=== PATIENT | male | born 1940 | race Caucasian/White ===

== ENCOUNTER → 2016-09-22 | Outpatient (CLI) | payer MEDICARE, OTHER ==
[~2016-09-22] MED LIST: AMBIEN CR12.5 MG PO; ATROVENT NASAL15 ML NS; CIALIS20 MG PO; DEPO-TESTOS200 MG/ML IM; LUTEIN20 M2 PO; METAMUCIL1 PDR PO; OMEPRAZOLE20 MG PO; ST. JOSEPH81 M2 PO; TERAZOSIN HCL5 MG PO; VIAGRA100 MG PO
== END ==
LOC: LAB 11:53
DX: I10 Essential (primary) hypertension (principal); Z72.51 High risk heterosexual behavior; N40.0 Benign prostatic hyperplasia without lower urinary tract symptoms; Z00.00 Encounter for general adult medical examination without abnormal findings; G56.21 Lesion of ulnar nerve, right upper limb; E29.1 Testicular hypofunction; R53.83 Other fatigue

== ENCOUNTER → 2017-03-05 | Outpatient (CLI) | payer MEDICARE, OTHER ==
[2015-10-13 10:44] VITALS: BP 138/74
== END ==
LOC: LAB 11:37
DX: E29.1 Testicular hypofunction (principal)

== ENCOUNTER → 2017-08-17 | Outpatient (CLI) | payer MEDICARE, OTHER ==
[2015-10-13 10:44] VITALS: BP 138/74
[2017-08-17 15:45] LABS: EOS # 0.2 (0.04-0.40); EOS % 2.4 % (0.0-4.0); HEMATOCRIT 48.9 % (42.0-52.0); HEMOGLOBIN 16.4 g/dL (13.5-18.0); LYMPH# 1.6 (1.50-4.00); MEAN CELL VOLUME 89 fl (78-100); MEAN CORPUSCULAR HEMOGLOBIN 30 pg (27-31); MEAN CORPUSCULAR HGB CONC 34 g/dL (33-37); MEAN PLATELET VOLUME 11.1 fl (7.4-10.4); MONO # 0.5 (0.20-0.80); NEU # 3.9 (1.40-6.50); PLATELET COUNT 190 K/mm3 (130-400); RED BLOOD COUNT 5.48 M/mm3 (4.20-5.60); RED CELL DISTRIBUTION WIDTH 13.9 % (11.5-14.5); WHITE BLOOD COUNT 6.2 K/mm3 (4.8-10.8)
[2017-08-17 16:08] LABS: ALBUMIN 4.3 g/dL (3.5-5.0); BUN/CREATININE RATIO 24.7 (6.0-26.0); CALCIUM 9.5 mg/dL (8.4-10.2); TOTAL BILIRUBIN 0.6 mg/dL (0.2-1.3); TOTAL PROTEIN 7.6 g/dL (6.3-8.2)
[2017-08-18 00:56] LABS: TESTOSTERONE 461 ng/dL (221-716)
[2017-08-18 01:06] LABS: HEPATITIS C ANTIBODY Negative (())
[2017-08-18 01:40] LABS: RPR (VDRL) Non-reactive (())
== END ==
LOC: LAB 14:31
PROVIDERS: Family Medicine
DX: E66.3 Overweight (principal); N40.0 Benign prostatic hyperplasia without lower urinary tract symptoms; Z12.5 Encounter for screening for malignant neoplasm of prostate; Z72.51 High risk heterosexual behavior

== ENCOUNTER → 2017-10-31 | Outpatient (CLI) | payer MEDICARE, OTHER ==
[2015-10-13 10:44] VITALS: BP 138/74
== END ==
LOC: RAD 12:57
DX: M19.012 Primary osteoarthritis, left shoulder (principal); M19.011 Primary osteoarthritis, right shoulder; M24.012 Loose body in left shoulder; E29.1 Testicular hypofunction

== ENCOUNTER → 2018-02-27 | Outpatient (CLI) | payer MEDICARE, OTHER ==
[2015-10-13 10:44] VITALS: BP 138/74
== END ==
LOC: RAD 13:42
DX: K40.20 Bilateral inguinal hernia, without obstruction or gangrene, not specified as recurrent (principal); M79.9 Soft tissue disorder, unspecified; Z87.81 Personal history of (healed) traumatic fracture

== ENCOUNTER → 2018-05-31 | Outpatient (CLI) | payer MEDICARE, OTHER ==
[2015-10-13 10:44] VITALS: BP 138/74
== END ==
LOC: LAB 11:17
DX: E29.1 Testicular hypofunction (principal)

== ENCOUNTER → 2018-06-06 | Outpatient (CLI) | payer MEDICARE, OTHER ==
[~2018-06-06] VITALS: Ht 177.8 cm; Wt 86.4 kg
[~2018-06-06] MED LIST changes: +HCTZ 25MG25 MG PO; +NEURONTIN300 MG/CAP
[2018-06-06 14:25] LABS: URINE APPEARANCE CLEAR; URINE BILIRUBIN NEGATIVE (NEGATIVE); URINE BLOOD NEGATIVE (NEGATIVE); URINE COLOR YELLOW; URINE GLUCOSE NEGATIVE (NEGATIVE); URINE KETONE NEGATIVE (NEGATIVE); URINE LEUKOCYTE ESTERASE NEGATIVE (NEGATIVE); URINE MUCUS PRESENT (NOT PRESENT); URINE NITRATE NEGATIVE (NEGATIVE); URINE PROTEIN(semi-quant) NEGATIVE (NEGATIVE); URINE UROBILINOGEN NORMAL (NORMAL); URINE WBC 0-1 /hpf (0-3)
[2018-06-06 14:26] LABS: EOS # 0.2 (0.04-0.40); EOS % 2.3 % (0.0-4.0); HEMATOCRIT 47.1 % (42.0-52.0); HEMOGLOBIN 16.3 g/dL (13.5-18.0); LYMPH# 1.7 (1.50-4.00); MEAN CELL VOLUME 89 fl (78-100); MEAN CORPUSCULAR HEMOGLOBIN 31 pg (27-31); MEAN CORPUSCULAR HGB CONC 35 g/dL (33-37); MEAN PLATELET VOLUME 10.7 fl (7.4-10.4); MONO # 0.5 (0.20-0.80); NEU # 4.7 (1.40-6.50); PLATELET COUNT 185 K/mm3 (130-400); RED BLOOD COUNT 5.29 M/mm3 (4.20-5.60); RED CELL DISTRIBUTION WIDTH 13.3 % (11.5-14.5); WHITE BLOOD COUNT 7.1 K/mm3 (4.8-10.8)
[2018-06-06 14:27] LABS: ALBUMIN 4.3 g/dL (3.5-5.0); CALCIUM 9.5 mg/dL (8.4-10.2); POTASSIUM 3.6 mmol/L (3.6-5.0); TOTAL BILIRUBIN 1.1 mg/dL (0.2-1.3); TOTAL PROTEIN 6.9 g/dL (6.3-8.2)
[2018-06-06 17:15] VITALS: BP 151/85
== END ==
LOC: RAD 12:00 → AMSURD 13:50
PROVIDERS: Family Medicine
DX: Z01.818 Encounter for other preprocedural examination (principal); R13.10 Dysphagia, unspecified

== ENCOUNTER → 2018-06-18 | Outpatient (CLI) | payer MEDICARE, OTHER ==
[2018-06-06 17:15] VITALS: BP 151/85
== END ==
LOC: RAD 15:09
DX: J84.10 Pulmonary fibrosis, unspecified (principal); R13.10 Dysphagia, unspecified; Z87.81 Personal history of (healed) traumatic fracture

== ENCOUNTER → 2018-07-22 | Outpatient (CLI) | payer MEDICARE, OTHER ==
[2018-06-06 17:15] VITALS: BP 151/85
[2018-07-22 10:12] LABS: EOS # 0.4 (0.04-0.40); HEMATOCRIT 46.6 % (42.0-52.0); HEMOGLOBIN 15.7 g/dL (13.5-18.0); LYMPH# 1.2 (1.50-4.00); MEAN CELL VOLUME 90 fl (78-100); MEAN CORPUSCULAR HEMOGLOBIN 30 pg (27-31); MEAN CORPUSCULAR HGB CONC 34 g/dL (33-37); MEAN PLATELET VOLUME 10.4 fl (7.4-10.4); MONO # 0.4 (0.20-0.80); NEU # 3.5 (1.40-6.50); PLATELET COUNT 177 K/mm3 (130-400); RED BLOOD COUNT 5.17 M/mm3 (4.20-5.60); RED CELL DISTRIBUTION WIDTH 12.9 % (11.5-14.5); WHITE BLOOD COUNT 5.5 K/mm3 (4.8-10.8)
[2018-07-22 10:20] LABS: EOS % 7.6 % (0.0-4.0)
[2018-07-22 10:23] LABS: ALBUMIN 4.2 g/dL (3.5-5.0); CALCIUM 9.4 mg/dL (8.4-10.2); POTASSIUM 3.8 mmol/L (3.6-5.0); TOTAL PROTEIN 6.9 g/dL (6.3-8.2)
[2018-07-22 11:01] LABS: URINE APPEARANCE HAZY; URINE BILIRUBIN NEGATIVE (NEGATIVE); URINE BLOOD NEGATIVE (NEGATIVE); URINE COLOR YELLOW; URINE GLUCOSE NEGATIVE (NEGATIVE); URINE KETONE NEGATIVE (NEGATIVE); URINE LEUKOCYTE ESTERASE NEGATIVE (NEGATIVE); URINE MUCUS PRESENT (NOT PRESENT); URINE NITRATE NEGATIVE (NEGATIVE); URINE PROTEIN(semi-quant) TRACE mg/dL (NEGATIVE); URINE UROBILINOGEN NORMAL (NORMAL)
[2018-07-23 01:18] LABS: TESTOSTERONE 300 ng/dL (221-716)
== END ==
LOC: LAB 09:37
PROVIDERS: Internal Medicine
DX: Z01.812 Encounter for preprocedural laboratory examination (principal); M19.011 Primary osteoarthritis, right shoulder; E29.1 Testicular hypofunction; R53.83 Other fatigue